=== PATIENT | female | born 1975 | race Caucasian/White ===

== ENCOUNTER 2021-02-09 03:33 | Emergency (ER) | payer MEDICAID ==
[~2021-02-09] VITALS: Ht 165.1 cm; Wt 91.0 kg
[2021-02-09] MEDS ORDERED: LORAZEPAM 2MG/ML CPJ IV STA (04:23)
[2021-02-09] MEDS ORDERED: SODIUM CHLORIDE 0.9% 1,000 ML IV ONE (04:30)
[2021-02-09 04:41] VITALS: BP 122/82
[2021-02-09 05:07] LABS: CLARITY URINE CLEAR (CLEAR); COLOR URINE YELLOW (YELLOW); KETONES URINE NEGATIVE (NEGATIVE); LEUKOCYTE ESTERASE URINE TRACE (NEGATIVE); NITRITE URINE NEGATIVE (NEGATIVE); OCCULT BLOOD URINE 3+ (NEGATIVE); PROTEIN URINE TRACE (NEGATIVE); SPECIFIC GRAVITY URINE 1.006 (1.005-1.030); UROBILINOGEN URINE 0.2 E.U./dL (0.2-1.0)
[2021-02-09 05:23] LABS: *BARBITURATES SCREEN URINE NEGATIVE (NEGATIVE)
[2021-02-09 05:24] LABS: *BENZODIAZEPINES SCREEN URINE NEGATIVE (NEGATIVE); *COCAINE SCREEN URINE NEGATIVE (NEGATIVE); METHADONE URINE SCREEN NEGATIVE (NEGATIVE); OPIATES URINE SCREEN NEGATIVE (NEGATIVE); PHENCYCLIDINE URINE SCREEN NEGATIVE (NEGATIVE)
[2021-02-09 05:25] LABS: CANNABINOID URINE SCREEN NEGATIVE (NEGATIVE)
[2021-02-09 05:45] LABS: *AMPHETAMINES SCREEN URINE PRESUMTIVE POSITIVE (NEGATIVE)
== END 2021-02-09 04:41 | disposition left against medical advice (07) ==
LOC: ER 03:33
DX: R07.89 Other chest pain (principal); R10.9 Unspecified abdominal pain; F60.3 Borderline personality disorder; R73.03 Prediabetes; J45.909 Unspecified asthma, uncomplicated; Z91.14 Patient's other noncompliance with medication regimen
CPT/HCPCS: 80305; 81003; 93005; 99284; J7030

== ENCOUNTER 2021-02-09 08:09 | Emergency (ER) | payer MEDICAID ==
[~2021-02-09] VITALS: Ht 167.6 cm; Wt 64.0 kg
[2021-02-09] MEDS ORDERED: OLANZAPINE 10 MG/VIAL IM ONE (08:30)
[2021-02-09] MEDS ORDERED: LORAZEPAM 2MG/ML CPJ IM ONE (08:30)
[2021-02-09 08:35] LABS: BASOPHILS % 0.5 % (0.0-2.0); EOSINOPHILS % 0.3 % (0.0-5.0); HEMATOCRIT. 40.9 % (36.0-48.0); HEMOGLOBIN. 14.2 g/dL (12.0-16.0); LYMPHOCYTES % 11.4 % (20.0-50.0); MEAN CORPUSCULAR VOLUME 92.2 fL (81.0-99.0); MEAN PLATELET VOLUME 7.6 fl (7.4-10.4); MONOCYTES % 6.3 % (2.0-8.0); NEUTROPHILS % 81.5 % (40.0-76.0); PLATELET 282 x1000/uL (130-400); RED BLOOD CELL COUNT 4.43 mill/uL (4.2-5.4); RED CELL DISTRIBUTION WIDTH 13.3 % (11.6-14.6)
[2021-02-09 08:41] LABS: CHLORIDE 110 mEq/L (98-107)
[2021-02-09 08:47] LABS: ETHANOL BLOOD < 10 mg/dL
[2021-02-09 09:09] LABS: CLARITY URINE CLOUDY (CLEAR); COLOR URINE RED (YELLOW); KETONES URINE 2+ (NEGATIVE); LEUKOCYTE ESTERASE URINE 1+ (NEGATIVE); NITRITE URINE NEGATIVE (NEGATIVE); OCCULT BLOOD URINE 3+ (NEGATIVE); PROTEIN URINE 2+ (NEGATIVE); SPECIFIC GRAVITY URINE 1.013 (1.005-1.030); UROBILINOGEN URINE 0.2 E.U./dL (0.2-1.0)
[2021-02-09 09:09] LABS: HCG SCREEN NEGATIVE
[2021-02-09 09:55] LABS: CANNABINOID URINE SCREEN NEGATIVE (NEGATIVE); OPIATES URINE SCREEN NEGATIVE (NEGATIVE); PHENCYCLIDINE URINE SCREEN NEGATIVE (NEGATIVE)
[2021-02-09 09:56] LABS: *BARBITURATES SCREEN URINE NEGATIVE (NEGATIVE); *BENZODIAZEPINES SCREEN URINE NEGATIVE (NEGATIVE); *COCAINE SCREEN URINE NEGATIVE (NEGATIVE); METHADONE URINE SCREEN NEGATIVE (NEGATIVE)
[2021-02-09 10:01] LABS: *AMPHETAMINES SCREEN URINE PRESUMTIVE POSITIVE (NEGATIVE)
[2021-02-09] MEDS ORDERED: LEVOFLOXACIN 500MG TABLET PO ONE (10:30)
[2021-02-09] MEDS: LEVOFLOXACIN 500MG TABLET PO SCH (11:00)
[2021-02-09] MEDS: RISPERIDONE 1MG TABLET PO SCH (20:45)
[2021-02-09] MEDS ORDERED: MIRTAZAPINE 30MG TABLET PO SCH (21:00)
[2021-02-09] MEDS: MIRTAZAPINE 15MG TABLET PO SCH (21:00)
[2021-02-10] MEDS: RISPERIDONE 1MG TABLET PO SCH ×3 (09:00→17:00)
[2021-02-10] MEDS: LEVOFLOXACIN 500MG TABLET PO SCH (11:00)
[2021-02-10] MEDS: MIRTAZAPINE 15MG TABLET PO SCH (21:00)
[2021-02-11] MEDS: RISPERIDONE 1MG TABLET PO SCH ×3 (09:00→17:00)
[2021-02-11] MEDS: LEVOFLOXACIN 500MG TABLET PO SCH (09:09)
[2021-02-11 20:20] VITALS: BP 111/72
== END 2021-02-11 21:00 ==
LOC: ER 08:09
DX: F23 Brief psychotic disorder (principal); R26.9 Unspecified abnormalities of gait and mobility; F15.10 Other stimulant abuse, uncomplicated; F16.10 Hallucinogen abuse, uncomplicated; F60.3 Borderline personality disorder; N39.0 Urinary tract infection, site not specified; J45.909 Unspecified asthma, uncomplicated; Z75.1 Person awaiting admission to adequate facility elsewhere; Z20.822 Contact with and (suspected) exposure to COVID-19
CPT/HCPCS: 36415; 80053; 80305; 80307; 80320; 80329; 81003; 81025; 84703; 85025; 96372; 99285; C9803; J2060; J3490; U0003; U0005; Z7610; G0480